=== PATIENT | female | born 1950 | race Caucasian/White ===

== ENCOUNTER 2017-07-26 12:02 | Inpatient (IN) | payer BC ==
[~2017-07-26] VITALS: Ht 167.6 cm; Wt 88.1 kg
[2017-07-26 12:54] LABS: BASOPHIL (%) 0.4 % (0-1); EOSINOPHIL (%) 1.6 % (0-5); EOSINOPHIL COUNT 0.2 K/uL (0-0.3); HEMATOCRIT 39.9 % (36.0-46.0); HEMOGLOBIN 13.9 G/DL (11.9-15.5); IMMATURE GRANULOCYTE (%) 0.5 % (0.0-0.7); LYMPHOCYTE (%) 15.3 % (15-42); LYMPHOCYTE COUNT 1.5 K/uL (1.0-2.8); MCH 30.8 PG (29.0-34.0); MCHC 34.8 G/DL (30.0-36.0); MCV 88.5 FL (83-99); MONOCYTE (%) 4.2 % (3-12); MONOCYTE COUNT 0.4 K/uL (0-0.8); NEUTROPHIL COUNT 7.5 K/uL (1.8-6.4); PLATELET COUNT 193 K/uL (156-360); RBC DIS.WIDTH-CV 12.2 % (11.8-14.6); RBC DIS.WIDTH-SD 39.3 % (39-53); RED BLOOD COUNT 4.51 M/uL (3.80-5.20); WHITE BLOOD COUNT 9.6 K/uL (4.1-10.2)
[2017-07-26 13:05] LABS: CHLORIDE 104 mEq/L (99-109); POTASSIUM 4.2 mEq/L (3.7-5.4); SODIUM 136 mEq/L (136-147)
[2017-07-26 13:07] LABS: GLUCOSE 156 mg/dL (70-99); TOTAL PROTEIN 6.9 g/dL (6.4-8.3)
[2017-07-26 13:09] LABS: TOTAL BILIRUBIN 0.9 mg/dL (0.0-1.0)
[2017-07-26 13:10] LABS: ALKALINE PHOSPHATASE 71 IU/L (3-129)
[2017-07-26 13:11] LABS: CREATININE 0.8 mg/dL (0.6-1.3)
[2017-07-26 13:12] LABS: AST (GOT) 23 IU/L (2-34); UREA NITROGEN (BUN) 18 mg/dL (9-23)
[2017-07-26 13:13] LABS: GFR ESTIMATE (CALCULATED) > 59 mL/min/
[2017-07-26 13:14] LABS: ALT (GPT) 21 IU/L (3-49)
[2017-07-26 16:38] VITALS: BP 127/75
[2017-07-26 18:00] VITALS: BP 131/60
[2017-07-27 04:10] VITALS: BP 134/70
[2017-07-27 05:41] LABS: BASOPHIL (%) 0.2 % (0-1); EOSINOPHIL (%) 0.6 % (0-5); EOSINOPHIL COUNT 0.1 K/uL (0-0.3); HEMATOCRIT 37.8 % (36.0-46.0); HEMOGLOBIN 13.1 G/DL (11.9-15.5); IMMATURE GRANULOCYTE (%) 0.2 % (0.0-0.7); LYMPHOCYTE (%) 22.3 % (15-42); LYMPHOCYTE COUNT 1.9 K/uL (1.0-2.8); MCH 31.1 PG (29.0-34.0); MCHC 34.7 G/DL (30.0-36.0); MCV 89.8 FL (83-99); MONOCYTE COUNT 0.6 K/uL (0-0.8); NEUTROPHIL (%) 69.7 % (45-76); PLATELET COUNT 190 K/uL (156-360); RBC DIS.WIDTH-CV 12.3 % (11.8-14.6); RBC DIS.WIDTH-SD 40.6 % (39-53); RED BLOOD COUNT 4.21 M/uL (3.80-5.20); WHITE BLOOD COUNT 8.6 K/uL (4.1-10.2)
[2017-07-27 06:09] LABS: CHLORIDE 103 MEQ/L (99-109); CREATININE 0.8 MG/DL (0.6-1.3); GFR ESTIMATE (CALCULATED) > 59 mL/min/; POTASSIUM 4.1 MEQ/L (3.7-5.4); SODIUM 141 MEQ/L (136-147); UREA NITROGEN (BUN) 16 mg/dL (9-23)
[2017-07-27 06:12] LABS: GLUCOSE 108 mg/dL (70-99)
[2017-07-27 08:00] VITALS: BP 148/70
[2017-07-27 11:14] VITALS: BP 130/61
[2017-07-27 15:01] VITALS: BP 127/68
[2017-07-27 19:48] VITALS: BP 125/71
[2017-07-27 23:19] VITALS: BP 140/72
[2017-07-28 04:19] VITALS: BP 115/63
[2017-07-28 05:02] LABS: APPEARANCE SL.HAZY ((CLEAR)); BILIRUBIN NEGATIVE; BLOOD NEGATIVE; COLOR YELLOW ((YELLOW)); GLUCOSE (STRIP) NEGATIVE; KETONES 5; LEUKOCYTES NEGATIVE; NITRITE NEGATIVE; PROTEIN (STRIP) NEGATIVE; SPECIFIC GRAVITY 1.015 (1.000-1.030); UROBILINOGEN 0.2 MG/DL (0.2-1.0)
[2017-07-28 05:11] LABS: BACTERIA RARE /HPF; EPITHELIAL CELLS RARE /HPF; MUCUS 3+ /LPF; RED BLOOD CELLS 0-5 /HPF (0-5); WHITE BLOOD CELLS 0-5 /HPF (0-5)
[2017-07-28 09:08] VITALS: BP 138/76
[2017-07-28 11:31] VITALS: BP 167/87
[2017-07-28] MEDS ORDERED: XANAX0.25 MG PO (15:10)
[2017-07-28] MEDS ORDERED: LIPITOR20 MG PO (15:11)
[2017-07-28] MEDS ORDERED: WELLBUTRIN XL150 MG PO (15:12)
[2017-07-28] MEDS ORDERED: OS-CAL 500+D31 EACH PO (15:13)
[2017-07-28] MEDS ORDERED: CELEXA40 MG PO (15:14)
[2017-07-28] MEDS ORDERED: GLUCOSAMINE H1500 MG PO (15:15)
[2017-07-28] MEDS ORDERED: POLY-VITAMIN1 EACH PO (15:16)
[2017-07-28] MEDS ORDERED: NAPROXEN500 MG PO (15:16)
[2017-07-28] MEDS ORDERED: PRILOSEC20 MG PO (15:17)
[2017-07-28] MEDS ORDERED: OXYBUTYNIN CHLO10 MG PO (15:18)
[2017-07-28] MEDS ORDERED: INDERAL LA80 MG PO (15:19)
[2017-07-28 23:33] VITALS: BP 115/59
[2017-07-29 03:27] VITALS: BP 131/74
[2017-07-29 07:56] VITALS: BP 137/79
[2017-07-29 11:58] VITALS: BP 131/79
[2017-07-29 16:37] VITALS: BP 136/65
[2017-07-29 19:47] VITALS: BP 145/76
[2017-07-29 23:35] VITALS: BP 128/67
[2017-07-30 09:07] VITALS: BP 158/78
[2017-07-30] MEDS ORDERED: PRILOSEC20 MG PO (10:37)
[2017-07-30] MEDS ORDERED: NAPROXEN500 MG PO (10:37)
[2017-07-30] MEDS ORDERED: INDERAL LA80 MG PO (10:37)
[2017-07-30] MEDS ORDERED: LIPITOR20 MG PO (10:37)
[2017-07-30] MEDS ORDERED: PROPRANOLOL HCL80 MG PO (10:47)
[2017-07-30] MEDS ORDERED: WELLBUTRIN XL150 MG PO (10:48)
[2017-07-30] MEDS ORDERED: CELEXA40 MG PO (10:48)
[2017-07-30] MEDS ORDERED: ANTIVERT25 MG PO (10:48)
[2017-07-30] MEDS ORDERED: PREDNISONE10 MG PO (10:51)
[2017-07-30 11:14] VITALS: BP 153/73
== END 2017-07-30 15:49 | DRG 149 ==
LOC: EME 12:02 → EDOF 14:40 → ENRESERV 14:46 → 5WEST 16:25 → ENPENDDIS 07-30 → 5WEST 07-30 15:49
PROVIDERS: Emergency Medicine; Physician Assistant
DX: R42 Dizziness and giddiness (principal); G43.909 Migraine, unspecified, not intractable, without status migrainosus; I10 Essential (primary) hypertension; H83.09 Labyrinthitis, unspecified ear; H55.09 Other forms of nystagmus; K21.9 Gastro-esophageal reflux disease without esophagitis; Z68.31 Body mass index [BMI] 31.0-31.9, adult; Z83.3 Family history of diabetes mellitus
CPT/HCPCS: 70450; 70551; 80048; 80053; 81003; 85025; 87040; 87086; 90686; 97530 GP; 99281; 99285; G0378; J1200; J1650; J1885; J2060; J2405; J2550; J2765; J2930; J7120; J7512; S0028